=== PATIENT | female | born 1985 | race Caucasian/White ===

== ENCOUNTER → 2017-08-22 | Outpatient (CLI) | payer BC ==
[2017-08-22 11:02] LABS: CH 23.2; CHCM 29.6; HCT 35.5 % (34.0-46.0); HDW 2.76; HGB 10.7 gm/dL (11.4-16.0); Hypochromasia Marked; MCH 23.7 pg (25.0-35.0); MCHC 30.1 g/dL (31.0-37.0); MCV 78.6 fL (80.0-100.0); Mean Platelet Volume 7.8; RBC 4.52 m/uL (3.80-5.40); RDW 14.6 % (11.5-15.5); WBC 7.9 k/uL (3.8-10.6)
[2017-08-22 16:19] LABS: Prolactin 12.6 ng/mL (2.8-29.2)
== END | disposition home or self-care (01) ==
LOC: LABWHC1 10:33
PROVIDERS: ATTEND Obstetrics & Gynecology
DX: N92.0 Excessive and frequent menstruation with regular cycle (principal)
CPT/HCPCS: 36415; 83001; 83002; 84146; 84443; 85027

== ENCOUNTER → 2018-11-05 | Outpatient (CLI) | payer BC ==
[2018-11-05 09:21] LABS: Basophils % (A) 1 %; Eosinophils # (A) 0.2 k/uL (0-0.7); Eosinophils % (A) 4 %; HCT 31.4 % (34.0-46.0); HGB 9.2 gm/dL (11.4-16.0); Hypochromasia Marked; Lymphocytes # (A) 1.6 k/uL (1.0-4.8); Lymphocytes % (A) 29 %; MCH 20.2 pg (25.0-35.0); MCHC 29.4 g/dL (31.0-37.0); MCV 68.9 fL (80.0-100.0); Mean Platelet Volume 6.7; Microcytosis Marked; Monocytes # (A) 0.2 k/uL (0-1.0); Monocytes % (A) 4 %; Neutrophils # (A) 3.2 k/uL (1.3-7.7); Neutrophils % (A) 60 %; Platelet Count 273 k/uL (150-450); RBC 4.56 m/uL (3.80-5.40); RDW 15.7 % (11.5-15.5); WBC 5.4 k/uL (3.8-10.6)
== END ==
LOC: LABPAT 08:20
PROVIDERS: ATTEND Obstetrics & Gynecology
DX: Z01.812 Encounter for preprocedural laboratory examination (principal)
CPT/HCPCS: 36415; 85025

== ENCOUNTER 2018-11-26 07:29 | Day surgery (SDC) | payer BC ==
[2018-11-23 10:57] VITALS: BMI 26.6
--- NOTE | 2018-11-25 16:38 | P.HPOB ---
History of Present Illness H&P Date: 11/25/18 Nasim is a 33 to female with heavy menses. Bleeding is described as very large clots sometimes as large as silver dollar or baseball size. She changes a super tampon with a pad every hour while she is on her cycle and her cycles last approximately 7-10 days. She has symptomatic and has been anemic she is therefore scheduled for a D&C with hysteroscopy and NovaSure. Risks/benefits/ alternatives to this procedure were discussed with the patient in detail and all questions were answered for her prior to proceeding to the operating room. It is noted that her partner had a vasectomy. Past Medical History Past Medical History: No Reported History History of Any Multi-Drug Resistant Organisms: None Reported Past Surgical History: Hernia Repair Additional Past Surgical History / Comment(s): D&C. Past Anesthesia/Blood Transfusion Reactions: No Reported Reaction Past Psychological History: No Psychological Hx Reported Smoking Status: Never smoker Past Alcohol Use History: None Reported Past Drug Use History: None Reported - Past Family History Mother Family Medical History: Cancer Additional Family Medical History / Comment(s): Cervical cancer Medications and Allergies Home Medications Medication Instructions Recorded Confirmed Type No Known Home Medications 11/23/18 11/23/18 History Allergies Allergy/AdvReac Type Severity Reaction Status Date / Time No Known Allergies Allergy Verified 11/23/18 10:50 Exam Osteopathic Statement: *. No significant issues noted on an osteopathic structural exam other than those noted in the History and Physical/Consult. - OBG Physical Exam Breast: both: normal (no masses) Abdomen: bowel sounds normal, no diffuse tenderness, no bruit present, no guarding noted, no hepatomegaly, no splenomegaly, no mass Vulva: both: normal Vagina: normal moisture, no discharge Cervix: no lesion, no discharge Uterus: normal size, normal contour Adnexa: both: normal Anus/Rectum: normal perianal skin, no rectal mass, no hemorrhoids, heme negative
[~2018-11-26 07:29] MED LIST: DEXAMETHASONE SOD PHOSPHATE 10 MG/ML 1 ML VIAL IV ONE; HYDROmorphone 0.5 MG/0.5 ML SYRINGE IVP PRN; LACTATED RINGERS 1,000 ML IV SCH; LIDOCAINE 1% 20 ML VIAL (10MG/ML) FOR IV START INTRADERMA PRN; ONDANSETRON 4 MG/2 ML VIAL IVP ONE; SCOPOLAMINE 1.5MG/72HR PATCH TRANSDERM ONE
[2018-11-26] MEDS ORDERED: LIDOCAINE 1% INJ 10MG/ML (20 ML MDV) ONE (08:03)
[2018-11-26] MEDS ORDERED: PROPOFOL 10 MG/ML 20 ML VIAL IV ONE (08:03)
[2018-11-26] MEDS ORDERED: MIDAZOLAM 2 MG/2 ML VIAL ONE (08:03)
[2018-11-26] MEDS ORDERED: fentaNYL (PF) 50 MCG/ML 2 ML AMP ONE (08:03)
[2018-11-26] MEDS ORDERED: KETOROLAC 30 MG/ML 1 ML VIAL ONE (08:03)
--- NOTE | 2018-11-26 08:37 | P.OP ---
Date of Procedure: 11/26/18 Preoperative Diagnosis: Menorrhagia Postoperative Diagnosis: Same Procedure(s) Performed: D&C with hysteroscopy and NovaSure ablation Anesthesia: RALPH Surgeon: Rajan Tavera Estimated Blood Loss (ml): 3 Pathology: other (Uterine curettings) Condition: stable Disposition: same day Operative Findings: Proliferative endometrium Description of Procedure: Patient was taken to the operating suite where a general anesthetic was found be adequate. She was prepped and draped in normal sterile fashion and placed in dorsal lithotomy position. Initially the uterus was sounded following grasping the cervix with an Allis clamp. It was sounded to 11 cm. Cervix was then dilated and camera was inserted. Proliferative endometrium was noted. Camera was removed and sharp curettings of the endometrium were obtained. This tissues collected placed on Telfa. Once this was accomplished, NovaSure system was brought in and with a length of 5.5 and a width of 4.2 it was tested and passed its patency test. It was then enabled and didn't burn for 68 seconds. At conclusion the burn system was removed and camera was reinserted with excellent burn noted. All instruments were then removed, sponge, lap, needle counts were all correct 2. Patient was then taken to the recovery room in stable and satisfactory condition. Plan - Discharge Summary New Discharge Prescriptions: New Ibuprofen [Motrin] 600 mg PO Q6HR PRN #30 tab PRN Reason: Pain Discharge Medication List Ibuprofen [Motrin] 600 mg PO Q6HR PRN #30 tab 11/26/18 [Rx] Follow up Appointment(s)/Referral(s): Rajan Tavera DO [Doctor of Osteopathic Medicine] - 2 Weeks Activity/Diet/Wound Care/Special Instructions: No heavy lifting, limit stairs and driving, and pelvic rest today. If any high temperatures, heavy bleeding, or severe pain call my office. Expect some cramping and discharge. Discharge Disposition: HOME SELF-CARE
[2018-11-26 08:39] VITALS: TEMP 98.2
[2018-11-26 09:16] VITALS: RESP 16
[2018-11-26 09:52] VITALS: BP 117/69; PULSE 73
== END 2018-11-26 09:59 | disposition home or self-care (01) ==
LOC: OR 07:29
PROVIDERS: ATTEND Obstetrics & Gynecology
DX: N92.0 Excessive and frequent menstruation with regular cycle (principal); N85.9 Noninflammatory disorder of uterus, unspecified
CPT/HCPCS: 81025; 88305; 58563; J2250; J1100; J2405; J2001; J3010; J1885; J2704

== ENCOUNTER → 2020-03-21 | Outpatient (CLI) | payer BC | END | disposition home or self-care (01) | LOC: LABWHC1 09:59 | PROVIDERS: ATTEND Obstetrics & Gynecology | DX: Z32.00 Encounter for pregnancy test, result unknown (principal) | CPT/HCPCS: 36415; 84702 ==

== ENCOUNTER → 2020-03-22 | Outpatient (CLI) | payer OTHER ==
--- NOTE | 2020-03-22 12:13 | US ---
EXAMINATION TYPE: Transabdominal DATE OF EXAM: 03/22/2020 10:34 AM COMPARISON: NONE CLINICAL HISTORY: Z36 confirm dates. confirm viability, history of ablation 12/15 EXAM PERFORMED: Transabdominal (TA) EXAM MEASUREMENTS: GESTATIONAL AGE / DATING Physician Established: Not yet established Dates by LMP: (6 weeks/2 days) EDC: 11/13/20 Dates by First Scan: No previous this is first scan Dates by Current Scan for: (5 weeks/5 days) - MSD EDC: 11/17/20 - MSD MATERNAL ANATOMY Uterus: 9.9 x 5.3 x 6.9cm Right Ovary: 3.1 x 2.0 x 2.0cm Left Ovary: 3.1 x 2.5 x 2.6cm Post CDS / Adnexa: appears wnl Presence of free fluid: no Presence of corpus luteal cyst: yes, hypoechoic area left ovary = 2.2 x 1.8 x 2.2cm GESTATION / SURVEY MSD: 1.0cm (5 weeks/5 days) Yolk Sac (normal less than 6mm): not seen Date of LMP: 02/07/20 Beta HcG (if available): Not available at this time Suboptimal study as only transabdominal investigation performed. Heterogeneous uterus. Endometrial th ickness is not measured by technologist. Within the endometrium there is oval anechoic area measuring 1.1 x 0.7 x 1.1 cm could reflect early gestational sac. No yolk sac or pole seen. No free flui d in pelvic cul-de-sac. Both ovaries seen with hypoechoic 2 cm area left ovary suspicious for corpus luteal cyst. No suspicio us extra ovarian adnexal lesions. IMPRESSION: Suspect too early to visualize intrauterine but spontaneous is in diff erential and ectopic is not excluded. Short-term serial beta hCG and ultrasound follow-up a dvised.
== END | disposition home or self-care (01) ==
LOC: RADUSWWP 10:17
PROVIDERS: ATTEND Obstetrics & Gynecology
DX: O36.80X0 Pregnancy with inconclusive fetal viability, not applicable or unspecified (principal); Z3A.00 Weeks of gestation of pregnancy not specified
CPT/HCPCS: 76801

== ENCOUNTER → 2020-03-23 | Outpatient (CLI) | payer OTHER | END | disposition home or self-care (01) | LOC: LABWHC1 08:56 | PROVIDERS: ATTEND Obstetrics & Gynecology | DX: O20.0 Threatened abortion (principal) | CPT/HCPCS: 36415; 84702 ==

== ENCOUNTER → 2020-03-30 | Outpatient (CLI) | payer OTHER | END | disposition home or self-care (01) | LOC: LABWHC1 09:28 | PROVIDERS: ATTEND Obstetrics & Gynecology | DX: O20.0 Threatened abortion (principal) | CPT/HCPCS: 36415; 84702 ==

== ENCOUNTER 2020-05-13 11:19 | Emergency (ER) | payer OTHER ==
[2020-05-13] MEDS ORDERED: ACETAMINOPHEN TAB 500 MG TAB PO STA (12:13)
[2020-05-13 12:46] LABS: Appearance,Urine Clear (Clear); Bilirubin,Urine Negative (Negative); Blood,Urine Negative (Negative); Color,Urine Colorless; Glucose,Urine (UA) 2+ (Negative); Ketones,Urine Negative (Negative); Leukocyte Esterase,Urine Negative (Negative); Nitrite,Urine Negative (Negative); PH, Urine 6.5 (5.0-8.0); Protein,Urine Negative (Negative); Specific Gravity,Urine 1.001 (1.001-1.035); Urobilinogen,Urine <2.0 mg/dL (<2.0)
[2020-05-13 13:13] LABS: Glucose,Whole Blood 78 mg/dL (75-99)
--- NOTE | 2020-05-13 13:21 | US ---
EXAMINATION TYPE: Transabdominal DATE OF EXAM: 05/13/2020 12:54 PM COMPARISON: NONE CLINICAL HISTORY: Fall, abd pain. Patient tripped and fell on stomach, RLQ pain EXAM PERFORMED: Transabdominal (TA) EXAM MEASUREMENTS: GESTATIONAL AGE / DATING Physician Established: (13 weeks/5 days) EDC: 11/13/20 Dates by LMP: (13 weeks/5 days) EDC: 11/13/20 Dates by First Scan: (13 weeks/1 days) EDC: 11/17/20 Dates by Current Scan for: (14 weeks/0 days) EDC: 11/11/20 MATERNAL ANATOMY Uterus: 13.4 x 8.2 x 9.7cm Right Ovary: 3.5 x 1.9 x 1.7cm Left Ovary: 3.0 x 2.1 x 2.0cm Post CDS / Adnexa: wnl Presence of free fluid: no GESTATION / SURVEY CRL: 7.8cm (14 weeks/0 days) Yolk Sac (normal less than 6mm): not seen Heart Rate: 152 bpm Rhythm: Normal IUP: Viable IUP Date of LMP: 02/07/20 Beta HcG (if available): Not available at this time Single viable IUP 14wks/0days with DEREK of 11/11/20. IMPRESSION: VIABLE INTRAUTERINE GESTATION WITH A GESTATIONAL AGE OF 14 WEEKS +/- 7 DAYS. ESTIMATED DATE CONFINEME NT BASED ON THIS EXAMINATION IS 11/11/2020.
--- NOTE | 2020-05-13 14:06 | ED ---
Abdominal Pain HPI - General Chief Complaint: Abdominal Pain Stated Complaint: 13 wks preg/trip & fall Time Seen by Provider: 05/13/20 11:26 Source: patient Mode of arrival: ambulatory Limitations: no limitations - History of Present Illness Initial Comments: 34-year-old female patient presents to the emergency department today for evaluation of right lower quadrant abdominal pain. Patient states the pain started after she experienced a fall today. States that she tripped over her dog around 9 AM and landed on her abdomen. States that she has been having the discomfort since so thought she should come and get evaluated. She does report being 13 weeks . She is . She denies any abnormal vaginal bleeding or discharge. Denies fever, chills, nausea, or vomiting. She sees Dr. Tavera for OBGYN. She does follow up with the high risk regional sales engineer in [place] since she has had an ablation in the past. Patient denies any recent rash, cough, shortness of breath, chest pain, diarrhea, constipation, back pain, numbness, tingling, dizziness, weakness, hematuria, dysuria, urinary urgency, urinary frequency, headache, visual changes, or any other complaints. - Related Data Previous Rx's Medication Instructions Recorded Ibuprofen [Motrin] 600 mg PO Q6HR PRN #30 tab 11/26/18 Allergies Allergy/AdvReac Type Severity Reaction Status Date / Time No Known Allergies Allergy Verified 05/13/20 11:22 Review of Systems ROS Statement: Those systems with pertinent positive or pertinent negative responses have been documented in the HPI. ROS Other: All systems not noted in ROS Statement are negative. Past Medical History Past Medical History: No Reported History History of Any Multi-Drug Resistant Organisms: None Reported Past Surgical History: Hernia Repair Additional Past Surgical History / Comment(s): d & c Past Psychological History: No Psychological Hx Reported Smoking Status: Never smoker Past Alcohol Use History: None Reported Past Drug Use History: None Reported General Exam Limitations: no limitations General appearance: alert, in no apparent distress, other (This is a well- developed, well-nourished adult female patient in no acute distress. Vital signs upon presentation are temperature 98.2F, pulse 90, respirations 16, blood pressure 120/67, pulse ox 97% on room air.) Eye exam: Present: normal appearance, PERRL, EOMI. Absent: scleral icterus, conjunctival injection, periorbital swelling ENT exam: Present: normal exam, normal oropharynx, mucous membranes moist Respiratory exam: Present: normal lung sounds bilaterally. Absent: respiratory distress, wheezes, rales, rhonchi, stridor Cardiovascular Exam: Present: regular rate, normal rhythm, normal heart sounds. Absent: systolic murmur, diastolic murmur, rubs, gallop, clicks GI/Abdominal exam: Present: soft, normal bowel sounds. Absent: distended, tenderness, guarding, rebound, rigid Neurological exam: Present: alert, oriented X3, CN II-XII intact Psychiatric exam: Present: normal affect, normal mood Skin exam: Present: warm, dry, intact, normal color. Absent: rash Course Vital Signs 05/13/20 05/13/20 11:20 14:22 Temperature 98.3 F 98.2 F Pulse Rate 90 72 Respiratory 16 17 Rate Blood Pressure 120/67 118/70 O2 Sat by Pulse 97 98 Oximetry Medical Decision Making - Medical Decision Making 34-year-old female patient presents to the emergency department today for evaluation of right lower quadrant abdominal discomfort after experiencing a fall today. Patient is 13 weeks . Physical examination revealed a soft nontender abdomen. There is no back pain or tenderness. Ultrasound of the fetus was obtained and showed no acute, became process, fetus is measuring 14 weeks with good heart rate. Urinalysis shows 2+ glucose but no other abnormalities. We did recheck a blood glucose. Capillary draw and it was 78. I did discuss findings and results with the patient. She is instructed follow- up with her PLAYER DEVELOPMENT MANAGER for recheck as soon as possible. Return parameters were discussed in detail. She verbalizes understanding and agrees with this plan. - Lab Data Lab Results 05/13/20 05/13/20 Range/Units 12:18 13:11 POC Glucose (mg/dL) 78 (75-99) mg/dL POC Glu Science Professor ID Dora Welsh Urine Color Colorless Urine Appearance Clear (Clear) Urine pH 6.5 (5.0-8.0) Ur Specific [place] 1.001 (1.001-1.035) Urine Protein Negative (Negative) Urine Glucose (UA) 2+ H (Negative) Urine Ketones Negative (Negative) Urine Blood Negative (Negative) Urine Nitrite Negative (Negative) Urine Bilirubin Negative (Negative) Urine Urobilinogen <2.0 (<2.0) mg/dL Ur Leukocyte Esterase Negative (Negative) - Radiology Data Radiology results: report reviewed Ultrasound was obtained. Report was reviewed in its entirety. Impression by Dr. Campa shows viable intrauterine gestation with a gestational age of 14 weeks. Estimated date of confinement based on this exam is 11/11/2020. Heart rate was 152. Disposition Clinical Impression: Abdominal pain affecting Disposition: HOME SELF-CARE Condition: Good Instructions (If sedation given, give patient instructions): Abdominal Pain in (ED) Additional Instructions: Follow-up with your PLAYER DEVELOPMENT MANAGER for recheck as soon as possible. Return to the emergency department immediately for any new, worsening, or concerning symptoms. Is patient prescribed a controlled substance at d/c from ED?: No Referrals: Milton Leija MD [Primary Care Provider] - 1-2 days Time of Disposition: 14:06
[2020-05-13 14:22] VITALS: BP 118/70; PULSE 72; RESP 17; TEMP 98.2
== END 2020-05-13 14:22 | disposition home or self-care (01) ==
LOC: EC 11:19
DX: O26.892 Other specified pregnancy related conditions, second trimester (principal); Z3A.14 14 weeks gestation of pregnancy
CPT/HCPCS: 36415; 76801; 81003; 99284

== ENCOUNTER → 2020-06-26 | Outpatient (CLI) | payer OTHER ==
--- NOTE | 2020-06-26 10:42 | US ---
EXAMINATION TYPE: US venous doppler duplex LE RT DATE OF EXAM: 06/26/2020 10:14 AM COMPARISON: NONE CLINICAL HISTORY: M79.604 DVT. Right leg pain. Currently . SIDE PERFORMED: Right TECHNIQUE: The lower extremity deep venous system is examined utilizing real time linear array sonog juan with graded compression, doppler sonography and color-flow sonography. VESSELS IMAGED: External Iliac Vein (EIV) Common Femoral Vein Deep Femoral Vein Greater Saphenous Vein * Femoral Vein Popliteal Vein Small Saphenous Vein * Proximal Calf Veins (* superficial vessels) Right Leg: Negative for DVT Grayscale, color doppler, spectral doppler imaging performed of the deep veins of the right lower ext remity. There is normal flow, compressibility, vascular waveforms. IMPRESSION: No ultrasound evidence for acute DVT in the right lower extremity.
== END | disposition home or self-care (01) ==
LOC: RADUSWWP 10:12
PROVIDERS: ATTEND Obstetrics & Gynecology
DX: M79.604 Pain in right leg (principal)

== ENCOUNTER 2020-09-05 15:39 | Outpatient (CLI) | payer OTHER ==
[2020-09-05 17:00] VITALS: BP 119/68; PULSE 105; RESP 16; TEMP 98.3
--- NOTE | 2020-09-06 00:45 | P.MSEPDOC ---
Presenting Problems - Arrival Data Date of Arrival on Unit: 09/05/20 Time of Arrival on Unit: 15:39 Mode of Transport: Ambulatory - Complaint OB-Reason for Admission/Chief Complaint: Possible Onset of Labor Comment: ctx since last night, states feels like gisella ortiz 7 per hour Medical History - Information : 3 Para: 2 Term: 2 : 0 Abortions: Spontaneous or Elective: 0 Number of Living Children: 2 - Gestational Age Gestational Age by DEREK (wks/days): 29 Weeks and 2 Days - History Complications: GDM Comment: diet controlled Review of Systems - Review of Systems Constitutional: No problems Breast: No problems ENT: No problems Cardiovascular: No problems Respiratory: No problems Gastrointestinal: No problems Genitourinary: No problems Musculoskeletal: No problems Neurological: No problems Skin: No problems Vital Signs - Temperature Temperature: 98.3 F Temperature Source: Temporal Artery Scan - Pulse Right Brachial Pulse Rate: 105 Pulse Assessment Method: Automatic Cuff - Respirations Respiratory Rate: 16 Oxygen Delivery Method: Room Air - Blood Pressure Right Arm Blood Pressure: 119/68 Blood Pressure Mean: 85 Blood Pressure Source: Automatic Cuff Medical Screen Scoring (Pre) - Cervical Exam Dilation: Exam Deferred Effacement: Exam Deferred Membranes: Intact - Uterine Contractions Frequency: > 5 minutes apart = 1 Duration: N/A Intensity: N/A - Maternal Vital Signs Maternal Temperature: N/A Maternal Blood Pressure: N/A Signs of Preeclampsia: N/A Maternal Respirations: N/A - Maternal Trauma Maternal Trauma: N/A - Assessment - Baby A Baseline FHR: 125 Heart Rate - NICHD Category: Category I (Normal) = 0 NST: Reactive Position: N/A Station: N/A - Total Score - Baby A Total Score - Baby A: 1 - Total Score - Baby B Total Score - Baby B: 1 - Total Score - Baby C Total Score - Baby C: 1 - Level of Risk - Baby A Level of Risk - Baby A: Low (0-5) - Level of Risk - Baby B Level of Risk - Baby B: Low (0-5) - Level of Risk - Baby C Level of Risk - Baby C: Low (0-5) Physician Notification (Pre) - Physician Notified Physician Notified Date: 09/05/20 Physician Notified Time: 16:25 New Order Received: Yes (get ffn then check cervix, if closed monitor 20 more min then dc) Disposition - Disposition OB Disposition: Triage, Discharge to home, Written follow up instructions re viewed Discharge Date: 09/05/20 Discharge Time: 16:54 I agree with the RN Medical Screening Exam: Yes Risk & Benefit of care provided described in d/c instruction: Yes Diagnosis: FALSE LABOR BEFORE 37 COMPLETED WEEKS OF GEST, THIRD TRI
== END 2020-09-05 16:54 | disposition home or self-care (01) ==
LOC: FBPOP 15:39
PROVIDERS: ATTEND Obstetrics & Gynecology
DX: O47.03 False labor before 37 completed weeks of gestation, third trimester (principal); Z3A.29 29 weeks gestation of pregnancy
CPT/HCPCS: 59025; G0463; 99213

== ENCOUNTER 2020-10-19 23:36 | Outpatient (CLI) | payer OTHER ==
[2020-10-20 01:28] VITALS: BP 123/62; PULSE 79; RESP 16; TEMP 98
--- NOTE | 2020-10-20 08:10 | P.MSEPDOC ---
Presenting Problems - Arrival Data Date of Arrival on Unit: 10/19/20 Time of Arrival on Unit: 23:36 Mode of Transport: Ambulatory - Complaint OB-Reason for Admission/Chief Complaint: Rule Out PROM Medical History - Information : 4 Para: 2 Term: 2 : 0 Abortions: Spontaneous or Elective: 1 Number of Living Children: 2 - Gestational Age Gestational Age by DEREK (wks/days): 35 Weeks and 5 Days - History Comment: pt is after uterus ablation Review of Systems - Review of Systems Constitutional: No problems Breast: No problems ENT: No problems Cardiovascular: No problems Respiratory: No problems Gastrointestinal: No problems Genitourinary: No problems Musculoskeletal: No problems Neurological: No problems Skin: No problems Vital Signs - Temperature Temperature: 98.0 F Temperature Source: Oral - Pulse Sitting Pulse Rate: 79 Pulse Assessment Method: Automatic Cuff - Respirations Respiratory Rate: 16 Oxygen Delivery Method: Room Air - Blood Pressure Left Arm Blood Pressure: 123/62 Blood Pressure Mean: 82 Blood Pressure Source: Automatic Cuff Medical Screen Scoring (Pre) - Cervical Exam Dilation: 1-3 cm = 1 - Uterine Contractions Frequency: N/A Duration: N/A Intensity: N/A - Maternal Vital Signs Maternal Temperature: N/A Maternal Blood Pressure: N/A Signs of Preeclampsia: N/A Maternal Respirations: N/A - Maternal Trauma Maternal Trauma: N/A - Assessment - Baby A Baseline FHR: 130 Heart Rate - NICHD Category: Category I (Normal) = 0 NST: Reactive Position: N/A Station: N/A - Total Score - Baby A Total Score - Baby A: 1 - Total Score - Baby B Total Score - Baby B: 1 - Total Score - Baby C Total Score - Baby C: 1 - Level of Risk - Baby A Level of Risk - Baby A: Low (0-5) - Level of Risk - Baby B Level of Risk - Baby B: Low (0-5) - Level of Risk - Baby C Level of Risk - Baby C: Low (0-5) Physician Notification (Pre) - Physician Notified Physician Notified Date: 10/20/20 Physician Notified Time: 12:15 New Order Received: Yes - Notification Comment Comment: PT TO BE DISCHARGED TO GO TO [facility] TO SEE HER OBGYN DOCTOR Disposition - Disposition OB Disposition: Transfer to other dept./facility, Written follow up instructions reviewed Discharge Date: 10/20/20 Discharge Time: 12:30 I agree with the RN Medical Screening Exam: Yes Physician's MSE Comment: Patient is given the option to go to [facility] in [place] by her own vehicle versus ambulance. She chose to go by her personal vehicle with her mother to expedite her arrival. NST was reactive and she was not showing any contractions prior to discharge. Risk & Benefit of care provided described in d/c instruction: Yes Diagnosis: PRETRM DEB ROM, UNSP TIME BETW RUPT AND ONST LABR, 3RD TRI
== END 2020-10-20 00:15 | disposition home or self-care (01) ==
LOC: FBPOP 23:36
PROVIDERS: ATTEND Obstetrics & Gynecology
DX: O42.913 Preterm premature rupture of membranes, unspecified as to length of time between rupture and onset of labor, third trimester (principal); Z3A.35 35 weeks gestation of pregnancy
CPT/HCPCS: 59025; 84112; G0463; 99213

== ENCOUNTER 2020-12-14 10:32 | Day surgery (SDC) | payer OTHER ==
[2020-12-11 15:58] VITALS: BMI 25.7
--- NOTE | 2020-12-12 17:09 | P.HPOB ---
History of Present Illness H&P Date: 12/12/20 Chief Complaint: Family planning Nasim is a 35-year-old female who is completed her family planning and desires permanent sterilization. Crispin last was,. By history of Jimbo and she was very high risk. Ultimately she had a section due to risk of abruption and this was done through maternal- medicine so no tubal ligation was performed. She is also supposed to have a cyst on her ovary that we'll try and evaluated at the same time as her laparoscopic tubal ligation. She understands that laparoscopic tubal ligation is designed to be permanent and not designed to be reversed she understands risks including but not limited to bleeding and infection, damage to bladder or bowel, as well as potential need for other surgeries. She is aware that there is a small risk of failure somewhere in the neighborhood of 4 per thousand. All other questions were answered for her prior to proceeding to the operative room. Past Medical History Past Medical History: No Reported History History of Any Multi-Drug Resistant Organisms: None Reported Past Surgical History: Hernia Repair, Uterine Ablation Additional Past Surgical History / Comment(s): d & c Past Anesthesia/Blood Transfusion Reactions: No Reported Reaction Smoking Status: Never smoker Medications and Allergies Home Medications Medication Instructions Recorded Confirmed Type Pnv No.95/Ferrous Fum/Folic AC 1 tab PO DAILY 09/05/20 12/11/20 History [ Multivitamin Tablet] Allergies Allergy/AdvReac Type Severity Reaction Status Date / Time No Known Allergies Allergy Verified 12/11/20 15:52 Exam Osteopathic Statement: *. No significant issues noted on an osteopathic structural exam other than those noted in the History and Physical/Consult. - OBG Physical Exam Breast: both: normal (no masses) Abdomen: bowel sounds normal, no diffuse tenderness, no bruit present, no guarding noted, no hepatomegaly, no splenomegaly, no mass Vulva: both: normal Vagina: normal moisture, no discharge Cervix: no lesion, no discharge Uterus: normal size, normal contour Adnexa: both: normal Anus/Rectum: normal perianal skin, no rectal mass, no hemorrhoids, heme negative
[~2020-12-14 10:32] MED LIST changes: -DEXAMETHASONE SOD PHOSPHATE 10 MG/ML 1 ML VIAL IV ONE; +DEXAMETHASONE SOD PHOSPHATE 4 MG/ML 1 ML VIAL IV ONE; -HYDROmorphone 0.5 MG/0.5 ML SYRINGE IVP PRN; +LIDOCAINE 1% (10MG/ML) FOR IV START INTRADERMA PRN; -LIDOCAINE 1% 20 ML VIAL (10MG/ML) FOR IV START INTRADERMA PRN; +Pre Op ABX Message 1 EACH MISC MISCELLANE ONE
[2020-12-14] MEDS ORDERED: NEOSTIGMINE 1 MG/ML 10 ML VIAL ONE (13:30)
[2020-12-14] MEDS ORDERED: fentaNYL (PF) 50 MCG/ML 2 ML AMP ONE (13:30)
[2020-12-14] MEDS ORDERED: GLYCOPYRROLATE 0.2 MG/ML 2 ML VIAL ONE (13:30)
[2020-12-14] MEDS ORDERED: SUCCINYLCHOLINE CHLORIDE 100 MG/5 ML SYR IV ONE (13:30)
[2020-12-14] MEDS ORDERED: PROPOFOL 10 MG/ML 20 ML VIAL IV ONE (13:30)
[2020-12-14] MEDS ORDERED: MIDAZOLAM 2 MG/2 ML VIAL ONE (13:30)
[2020-12-14] MEDS ORDERED: ROCURONIUM 10 MG/ML (10 ML VIAL) IV ONE (13:30)
[2020-12-14] MEDS ORDERED: KETOROLAC 15 MG/ML 1 ML VIAL ONE (13:30)
[2020-12-14] MEDS ORDERED: BUPIVACAINE (PF) 0.25% 30 ML VIAL SQ ONE ×2 (13:57→14:02)
--- NOTE | 2020-12-14 14:18 | P.OP ---
Date of Procedure: 12/14/20 Preoperative Diagnosis: Family planning Postoperative Diagnosis: Same with adenomyosis Procedure(s) Performed: Laparoscopic tubal with Filshie clips Anesthesia: RALPH Surgeon: Rajan Tavera Estimated Blood Loss (ml): 5 IV fluids (ml): 400 Urine output (ml): 150 Pathology: none sent Condition: stable Disposition: same day Operative Findings: Grossly enlarged and "mushy" uterus likely adenomyosis Description of Procedure: Patient was taken to the operating suite where a general anesthetic was found be adequate. She was prepped and draped in the normal sterile fashion and placed in the dorsal lithotomy position. Initially a speculum was inserted in the vagina and anterior lip of cervix identified and grasped with single-tooth tenaculum. Uterus was then sounded to 11 cm. Kroner manipulator was inserted without difficulty speculum and tenaculum were removed and red rubber catheter was used to drain the bladder urine. Gloves were then changed and attention was turned to the abdominal portion procedure where 2 mL of quarter percent Marcaine was injected periumbilically. Through this injected anesthetic a 5 mm skin incision was made and through this incision, under direct visualization with an optical trocar and sleeve the camera was inserted. It is noted that she has mental adhesions to her anterior abdominal wall. Once the camera was inserted we were able to visualize the uterus therefore a second skin incision was made in her scar in the midline through an 8 mm skin incision and a port was placed. This was again done under direct visualization. Uterus was then elevated as best we could was very heavy and was soft likely with adenomyosis from her endometrial ablation. Right and left fallopian tubes however were able to visualize a Filshie clip was applied 2 cm from uterine cornu no bleeding is noted in the mesosalpinx. Incidents are then removed and gas was allowed to expel from the abdomen. 5 deep breaths were provided during this process. Skin incisions are then closed with 4-0 Vicryl subcuticularly and the remaining 8 mL of Marcaine is injected around the incisions. Incidents are now removed from the vagina. Sponge, lap, needle counts were all correct 2. Patient was then taken to the recovery room in stable and satisfactory condition. Plan - Discharge Summary Discharge Rx Participant: No New Discharge Prescriptions: New Ibuprofen [Motrin] 600 mg PO Q6HR PRN #30 tab PRN Reason: Pain HYDROcodone/APAP 5-325MG [Lucan 5-325] 1 tab PO Q4HR PRN #20 tab PRN Reason: Pain No Action Pnv No.95/Ferrous Fum/Folic AC [ Multivitamin Tablet] 1 tab PO DAILY Discharge Medication List Pnv No.95/Ferrous Fum/Folic AC [ Multivitamin Tablet] 1 tab PO DAILY 09/05/20 [History] HYDROcodone/APAP 5-325MG [Lucan 5-325] 1 tab PO Q4HR PRN #20 tab 12/14/20 [Rx] Ibuprofen [Motrin] 600 mg PO Q6HR PRN #30 tab 12/14/20 [Rx] Follow up Appointment(s)/Referral(s): Rajan Tavera DO [Doctor of Osteopathic Medicine] - 2 Weeks Activity/Diet/Wound Care/Special Instructions: No heavy lifting, limit stairs and driving, and pelvic rest. No tub baths for 2 weeks showering is fine. Call for any high temperatures, heavy bleeding or severe pain. Discharge Disposition: HOME SELF-CARE
[2020-12-14 14:24] VITALS: TEMP 100.2
[2020-12-14] MEDS: HYDROmorphone 0.5 MG/0.5 ML SYRINGE IVP PRN ×2 (14:30→14:53)
[2020-12-14] MEDS ORDERED: LACTATED RINGERS 1,000 ML IV ONE (14:38)
[2020-12-14 15:13] VITALS: RESP 18
[2020-12-14] MEDS ORDERED: IBUPROFEN 200 MG TAB PO ONE (15:19)
[2020-12-14 15:41] VITALS: BP 115/77; PULSE 71
== END 2020-12-14 16:11 | disposition home or self-care (01) ==
LOC: OR 10:32
PROVIDERS: ATTEND Obstetrics & Gynecology
DX: Z30.2 Encounter for sterilization (principal); N80.0 Endometriosis of uterus; Z98.890 Other specified postprocedural states
CPT/HCPCS: 58671; 81025; J2250; J1100; J2710; J2405; J3010; J1885; J0330; J2704; J1170

== ENCOUNTER → 2021-02-06 | Outpatient (CLI) | payer OTHER ==
--- NOTE | 2021-02-06 11:01 | MM ---
Reason for exam: screening (asymptomatic). Baseline mammogram. Physical Findings: Nurse did not find any significant physical abnormalities on exam. MG Screening Mammo w CAD Bilateral CC and MLO view(s) were taken. Finding: There are typically benign round calcifications in the 12 o'clock posterior position of the left breast. There is no dominant lesion. These results were verbally communicated with the patient and result sheet given to the patient on 02/06/21. ASSESSMENT: Incomplete: need additional imaging evaluation, BI-RAD 0 RECOMMENDATION: Ultrasound of the right breast.
--- NOTE | 2021-02-06 11:02 | USB ---
Reason for exam: additional evaluation requested from abnormal screening. Physical Findings: Breast exam preformed at baseline screening. US Breast Workup Limited RT Right limited breast ultrasound including focal area of concern, retroareolar and axilla demonstrates no cystic or solid lesion seen. These results were verbally communicated with the patient and result sheet given to the patient on 02/06/21. ASSESSMENT: Negative, BI-RAD 1 RECOMMENDATION: Routine screening mammogram of both breasts at age 39. Manage patient on a clinical basis.
== END ==
LOC: RADMAMWWP 07:29
PROVIDERS: ATTEND Obstetrics & Gynecology
DX: Z12.31 Encounter for screening mammogram for malignant neoplasm of breast (principal); R92.8 Other abnormal and inconclusive findings on diagnostic imaging of breast
CPT/HCPCS: 77067

== ENCOUNTER 2023-02-17 12:51 | Emergency (ER) | payer OTHER ==
[2023-02-17] MEDS ORDERED: DIPH,PERTUS(ACELL)TETVAC-LF 0.5 ML VIAL IM ONE (13:34)
[2023-02-17] MEDS ORDERED: ACETAMINOPHEN TAB 500 MG TAB PO STA (13:44)
--- NOTE | 2023-02-17 13:44 | ED ---
Wound/Laceration HPI - General Chief Complaint: Wound/Laceration Stated Complaint: head laceration Time Seen by Provider: 02/17/23 13:07 Source: patient, RN notes reviewed (I did) Mode of arrival: ambulatory Limitations: no limitations - History of Present Illness Initial Comments: Patient is a pleasant 37-year-old female presenting to the emergency room with complaints of laceration to the top of her head which she got when she jumped up at the park earlier today where she was with her son. During her jump upwards her sunglasses hit the park equipment consequently taking into her scalp. She denies any loss of consciousness or her head actually hitting the park equipment. She denies any headache not directly related to laceration, dizziness, focal neurological deficits, nausea or vomiting. She is unsure when her last tetanus shot was. She denies any other complaints or concerns. She denies any significant past medical history. - Related Data Previous Rx's Medication Instructions Recorded Acetaminophen Tab [Tylenol] 650 mg PO Q6H #30 tab 01/19/22 Docusate [Colace] 100 mg PO BID #20 capsule 01/19/22 Ibuprofen [Motrin] 600 mg PO Q6HR PRN #40 tab 01/19/22 oxyCODONE HCL [OxyIR] 5 mg PO Q6H PRN 3 Days #10 tab 01/19/22 levoFLOXacin [Levaquin] 500 mg PO DAILY 7 Days #1 tab 01/20/22 Allergies Allergy/AdvReac Type Severity Reaction Status Date / Time No Known Allergies Allergy Verified 02/17/23 13:03 Review of Systems ROS Statement: Those systems with pertinent positive or pertinent negative responses have been documented in the HPI. ROS Other: All systems not noted in ROS Statement are negative. Past Medical History Past Medical History: No Reported History History of Any Multi-Drug Resistant Organisms: None Reported Past Surgical History: Hernia Repair, Uterine Ablation Additional Past Surgical History / Comment(s): d & c Past Anesthesia/Blood Transfusion Reactions: No Reported Reaction Past Psychological History: No Psychological Hx Reported Smoking Status: Never smoker Past Alcohol Use History: None Reported Past Drug Use History: None Reported General Exam - General Exam Comments Initial Comments: GENERAL: No acute distress, well developed, well nourished. HEENT: Normocephalic. Pupils equal, round, reactive to light. Moist mucous membranes. 1.5 cm laceration noted to the dome of the scalp center centrally with mild tissue swelling without evidence of hematoma. LUNGS: No respiratory distress or use of accessory muscles. HEART: Regular rate. ABDOMEN: Non-distended. BACK: Normal inspection. EXTREMITIES: No edema. No tenderness. Moves all extremities. NEUROLOGIC: Alert & oriented x 3. CN II-XII grossly intact. PSYCHIATRIC: Normal affect and behavior. DERMATOLOGIC: Small abrasion noted to the right of laceration to scalp noted above otherwise skin intact, without rashes or lesions noted. Limitations: no limitations Course Vital Signs 02/17/23 02/17/23 13:02 13:58 Temperature 97.8 F 97.9 F Pulse Rate 106 H 89 Respiratory 20 14 Rate Blood Pressure 146/86 138/78 O2 Sat by Pulse 96 98 Oximetry Procedures - Laceration Laceration #1 Consent Obtained: verbal consent Indication: laceration Site: scalp Size (cm): 1 (1.5 cm) Description: linear Depth: simple, single layer Type of Sutures: other (staple) Number of Sutures: 2 Technique: simple, interrupted Patient Tolerated Procedure: well, no complications Medical Decision Making - Medical Decision Making Was pt. sent in by a medical professional or institution (, PA, LOAN REVIEW OFFICER, urgent care, hospital, or long-term...) When possible be specific @ -No Did you speak to anyone other than the patient for history (EMS, parent, family, police, friend...)? What history was obtained from this source @ -No Did you review nursing and triage notes (agree or disagree)? Why? @ -I reviewed and agree with nursing and triage notes Were old charts reviewed (outside hosp., previous admission, EMS record, old EKG, old radiological studies, urgent care reports/EKG's, long-term records)? Report findings @ -No old charts were reviewed Differential Diagnosis (chest pain, altered mental status, abdominal pain women, abdominal pain men, vaginal bleeding, weakness, fever, dyspnea, syncope, headache, dizziness, GI bleed, back pain, seizure, CVA, palpatations, mental health, musculoskeletal)? @ -not applicable EKG interpreted by me (3pts min.). @ -None done X-rays interpreted by me (1pt min.). @ -None done CT interpreted by me (1pt min.). @ -None done U/S interpreted by me (1pt. min.). @ -None done What testing was considered but not performed or refused? (CT, X-rays, U/S, labs)? Why? @ -Computed tomography scan of head considered however in the setting of lack of concussive symptoms, no significant blunt force trauma to head, no loss of consciousness or blood thinner uses will defer computed tomography scan. What meds were considered but not given or refused? Why? @ -Lidocaine prior to staple insertion considered but deferred due to small laceration length. Did you discuss the management of the patient with other professionals (professionals i.e. , PA, LOAN REVIEW OFFICER, lab, RT, psych nurse, professor of social work, chemical dependency professional, teacher, commanding officer motorized squad, pillowcase folder)? Give summary @ -No Was smoking cessation discussed for >3mins.? @ -No Was critical care preformed (if so, how long)? @ -No Were there social determinants of health that impacted care today? How? (Homelessness, low income, unemployed, alcoholism, drug addiction, transportation, low edu. Level, literacy, decrease access to med. care, correction, rehab)? @ -No Was there de-escalation of care discussed even if they declined (Discuss DNR or withdrawal of care, Hospice)? DNR status @ -No What co-morbidities impacted this encounter? (DM, HTN, Smoking, COPD, CAD, Cancer, CVA, ARF, Chemo, Hep., AIDS, mental health diagnosis, sleep apnea, morbid obesity)? @ -None Was patient admitted / discharged? Hospital course, mention meds given and route, prescriptions, significant lab abnormalities, going to OR and other pertinent info. @ - 37-year-old female presents to the emergency room with complaint of laceration to her head. Her sunglasses were forced into her head when she jumped up hitting her head at the park with her son earlier today. She denies any loss of consciousness and reports that her head did not hit anything other than collision impact with her sunglasses. No indication for diagnostic imaging. Unsure of last tetanus will update tetanus. Given short length of laceration will defer anesthesia and placed 2 brenda to laceration. 2 brenda placed without complication. Type patient tolerated well. Wound care discussed at length. No indication for antibiotic therapy. Questions and concerns answered. Return parameters to the emergency room discussed. Will discharge home in stable condition advising localized wound care and staple removal in 7 days at the emergency room along with follow-up with primary care provider as needed. Undiagnosed new problem with uncertain prognosis? @ -No Drug Therapy requiring intensive monitoring for toxicity (Heparin, Nitro, Insulin, Cardizem)? @ -No Were any procedures done? @ -Yes, brenda placed, see procedures for detailed Diagnosis/symptom? @ -Laceration scalp Acute, or Chronic, or Acute on Chronic? @ -Acute Uncomplicated (without systemic symptoms) or Complicated (systemic symptoms)? @ -Uncomplicated Side effects of treatment? @ -No Exacerbation, Progression, or Severe Exacerbation? @ -No Poses a threat to life or bodily function? How? (Chest pain, [place], [place], pneumonia, PE, COPD, DKA, ARF, appy, cholecystitis, CVA, Diverticulitis, Homicidal, Suicidal, threat to staff... and all critical care pts) @ -No. Case discussed with Dr. Mullins. Disposition Clinical Impression: Laceration Disposition: HOME SELF-CARE Condition: Stable Instructions (If sedation given, give patient instructions): Care For Your Stitches (ED), Laceration (ED) Additional Instructions: Please keep wound clean and dry. Monitor for signs and symptoms of infection and seek medical attention as appropriate if symptoms occur. Please return to the e mergency department for suture removal in 7 days. Please return to the Emergency Department if symptoms worsen or any other concerns. Is patient prescribed a controlled substance at d/c from ED?: No Referrals: Robin Gee MD [Primary Care Provider] - 1-2 days Time of Disposition: 13:53
[2023-02-17 14:02] VITALS: BP 138/78; PULSE 89; RESP 14; TEMP 97.9
== END 2023-02-17 14:03 | disposition home or self-care (01) ==
LOC: EC 12:51
DX: S01.01XA Laceration without foreign body of scalp, initial encounter (principal); Z23 Encounter for immunization; W21.89XA Striking against or struck by other sports equipment, initial encounter
CPT/HCPCS: 12001; 90471; 90715; 99282

== ENCOUNTER → 2024-02-10 | Outpatient (CLI) | payer OTHER ==
[2024-02-10 15:45] LABS: Basophils # (A) 0.07 X 10*3/uL (0.00-0.10); Eosinophils # (A) 0.27 X 10*3/uL (0.04-0.35); HCT 42.9 % (37.2-46.3); HGB 14.3 g/dL (12.0-15.0); Lymphocytes # (A) 2.07 X 10*3/uL (0.90-5.00); Lymphocytes % (A) 30.5 %; MCHC 33.3 g/dL (32.0-37.0); Mean Platelet Volume 10.6 FL (9.5-12.2); Monocytes # (A) 0.48 X 10*3/uL (0.20-1.00); Monocytes % (A) 7.1 %; NRBC Per 100 WBC 0 X 10*3/uL (0.00-0.01); Neutrophils # (A) 3.87 X 10*3/uL (1.80-7.70); Neutrophils % (A) 57.1 %; Platelet Count 258 X 10*3/uL (140-440); RBC 5.11 X 10*6/uL (4.10-5.20); RDW 13.1 % (11.5-14.5); WBC 6.78 X 10*3/uL (4.50-10.00)
[2024-02-10 16:22] LABS: ALT 43 U/L (8-44); AST 33 U/L (13-35); Albumin 4.6 g/dL (3.8-4.9); Albumin/Globulin Ratio 2.09 Ratio (1.60-3.17); Alkaline Phosphatase 76 U/L (41-126); BUN/Creat Ratio 13.29 Ratio (12.00-20.00); Blood Urea Nitrogen 9.3 mg/dL (9.0-27.0); Calcium 9.5 mg/dL (8.7-10.3); Carbon Dioxide 25.6 mmol/L (21.6-31.8); Chloride 105 mmol/L (96-109); Chol/HDL Ratio 4.32 Ratio; Globulin 2.2 g/dL (1.6-3.3); Glucose 100 mg/dL (70-110); LDL Cholesterol,Calculated 108.3 mg/dL (0.0-131.0); Potassium 4.6 mmol/L (3.5-5.5); Sodium 140 mmol/L (135-145); Total Bilirubin 0.4 mg/dL (0.3-1.2); Total Protein 6.8 g/dL (6.2-8.2)
== END | disposition home or self-care (01) ==
LOC: LABWHC1 09:19
PROVIDERS: ATTEND Internal Medicine
DX: Z00.00 Encounter for general adult medical examination without abnormal findings (principal); Z11.59 Encounter for screening for other viral diseases
CPT/HCPCS: 36415; 80053; 80061; 84443; 85025; 86803